=== PATIENT | female | born 1980 | race African-American/Black ===

== ENCOUNTER 2018-08-22 14:06 | Outpatient (CLI) | payer BC | END 2018-08-22 14:07 | disposition home or self-care (01) | LOC: DTY/OP 14:06 | PROVIDERS: ATTEND Surgery | DX: E66.01 Morbid (severe) obesity due to excess calories (principal) | CPT/HCPCS: 97802 ==

== ENCOUNTER 2018-09-18 10:15 | Inpatient (IN) | payer BC ==
[2018-09-18 11:06] VITALS: BMI 40.5
[2018-10-01] MEDS ORDERED: Heparin 5,000 UNITS/ML VIAL ONE (07:39)
[2018-10-01] MEDS ORDERED: Bupivacaine/Epinephrine 0.25% 30 ML VIAL ONE (07:40)
[2018-10-01] MEDS ORDERED: Fentanyl 100 MCG/2 ML VIAL ONE ×3 (07:42→09:37)
[2018-10-01] MEDS ORDERED: Midazolam HCl 2 mg/2 ml Vial ONE (07:42)
[2018-10-01] MEDS ORDERED: Famotidine/PF 20 mg/2ml Vial ONE (07:42)
[2018-10-01] MEDS ORDERED: Promethazine HCl 25 MG/ML VIAL SLOW IVP PRN (08:49)
[2018-10-01] MEDS ORDERED: Meperidine HCl/PF 25 MG/ML VIAL SLOW IVP PRN (08:49)
[2018-10-01] MEDS ORDERED: Promethazine HCl 25 MG/ML VIAL IM PRN ×2 (08:49→09:01)
[2018-10-01] MEDS ORDERED: Ondansetron HCl/PF 4 MG/2 ML Vial IVP PRN (08:49)
[2018-10-01] MEDS ORDERED: Hydrocodone-Acetamin 15 ML UDCUP PO PRN (09:01)
[2018-10-01] MEDS ORDERED: diphenhydrAMINE 50 MG/ML VIAL IVP PRN (09:01)
[2018-10-01] MEDS ORDERED: Ondansetron PF 4 MG/2 ML Vial IVP PRN (09:01)
[2018-10-01] MEDS ORDERED: Dextrose 50% Abboject 50 ML SYRINGE SLOW IVP PRN (09:01)
[2018-10-01] MEDS ORDERED: Dextrose 5% in Water 1,000 ML IV PRN (09:01)
[2018-10-01] MEDS ORDERED: fentaNYL Citrate/PF 2,000 MCG in Sodium Chloride 0.9% 60 ML IV PRN (11:33)
[2018-10-01] MEDS: D5 1/2 NS w/20 mEq KCL 1,000 ML IV SCH ×3 (11:35→20:11)
[2018-10-01] MEDS ORDERED: Fentanyl 100 MCG/2 ML VIAL SLOW IVP SCH (11:45)
--- NOTE | 2018-10-01 12:03 | OP ---
DATE OF PROCEDURE: 10/01/2018 PREOPERATIVE DIAGNOSIS: Morbid obesity. PROCEDURE PERFORMED: Laparoscopic sleeve gastrectomy with esophagogastroscopy. INDICATIONS: A 37-year-old female, morbidly obese, who has attempted multiple weight loss programs without success. FINDINGS: A 38-[place] bougie used. DESCRIPTION OF PROCEDURE: After informed consent was obtained, the patient was taken to the operating room and given general endotracheal anesthesia, placed in supine position. Abdomen was prepped and draped in usual fashion. Local anesthesia was infiltrated subcutaneously and deep. A 12-mm incision was performed approximately 8 inches below the xiphoid slightly to the left. Veress needle was inserted. Drop test was performed. Pneumoperitoneum was created to a volume of 2 L of carbon dioxide. Utilizing a bladeless 12 mm trocar and 0-degree laparoscope, direct visual entry into abdominal cavity was performed. Pneumoperitoneum was created to a pressure of 15 mmHg, and the patient was placed in steep reverse Trendelenburg position. Yany liver retractor was inserted. Left lobe of the liver retracted superiorly. Pylorus was identified. A 12-mm port was placed on the right beneath it and two 12s placed in left subcostal. The omentum was taken off the greater curvature 5 cm from the pylorus utilizing the LigaSure. Short gastrics divided with the LigaSure. Left crura defined with the LigaSure. A 38-[place] bougie was inserted directed into the antrum. The linear 60 mm green load stapler was used to divide the antrum to the bougie, gold load along the bougie, and a series of blues through the angle of His. Intraoperative endoscopy was performed. The video endoscope was inserted under direct vision and advanced into the sleeve. Staple line inspected. There was no bleeding. Staple line was then tested by inflating the new stomach with pressurized air and water. There was no air leak. Stomach decompressed. Scope was removed. The remnant stomach was removed from the abdomen through the left lateral port site. The fascia was closed with 0 Vicryl suture and the GraNee needle. Trocars and retractors were removed. The skin was closed with interrupted 4-0 Rapide. Dermabond was applied. The patient tolerated the procedure well, transferred to Recovery in good condition. Sponge and needle count verified correct x2. Job ID: [id number]
[2018-10-01] MEDS: CEFAZOLIN 2 GM in Premix Bag 1 BAG IVPB SCH ×2 (14:28→20:11)
[2018-10-01] MEDS: hydrALAZINE 20 MG/ML VIAL SLOW IVP PRN (15:35)
[2018-10-02 05:23] LABS: #Lymphocytes 1.2 thou/uL (1.20-3.40); #Monocytes 0.9 thou/uL (0.11-0.59); #Neutrophils 10.6 thou/uL (1.40-6.50); %Basophils 0.1 % (0.0-1.0); %Eosinophils 0.1 % (0.0-10.0); %Lymphocytes 9.1 % (21.0-51.0); %Monocytes 6.8 % (0.0-10.0); %Neutrophils 83.9 % (42.0-75.0); Hemoglobin 13.5 g/dL (12.0-16.0); Mean Corpuscular HGB CONC 34.5 g/dL (32.0-36.0); Mean Corpuscular Hemoglobin 29.3 pg (27.0-31.0); Mean Corpuscular Volume 84.8 fL (78.0-98.0); Mean Platelet Volume 9.1 fL (7.4-10.4); Platelet Count 219 thou/uL (130-400); RBC Distribution Width 11.4 % (11.5-14.5); White Blood Cell (WBC) Count 12.7 thou/uL (4.8-10.8)
[2018-10-02 05:44] LABS: Anion Gap 15 mmol/L (10-20); BUN (Urea Nitrogen) 9 mg/dL (7.0-18.7); Calc. Creatinine Clearance 189 mL/min (70-130); Calcium 9.3 mg/dL (7.8-10.44); Carbon Dioxide 22 mmol/L (22-29); Chloride 102 mmol/L (98-107); Estimated GFR-MDRD Greater than 90; Glucose 113 mg/dL (70-105); Potassium 4.1 mmol/L (3.5-5.1); Sodium 135 mmol/L (136-145)
[2018-10-02 08:39] VITALS: TEMP 98.3
[2018-10-02] MEDS: D5 1/2 NS w/20 mEq KCL 1,000 ML IV SCH (08:40)
[2018-10-02] MEDS: hydrALAZINE 20 MG/ML VIAL SLOW IVP PRN ×2 (08:40→13:13)
[2018-10-02] MEDS ORDERED: Enoxaparin Sodium 40 MG/0.4 ML SYRINGE SC SCH (09:00)
[2018-10-02] MEDS ORDERED: Pantoprazole 40 MG VIAL IVP SCH (09:00)
--- NOTE | 2018-10-02 09:20 | RAD ---
Upper GI series. HISTORY: Patient with recent gastric sleeve. 30 mL of Gastrografin was given orally. Spot images obtained. Radiation dosimetry: 1.1 minutes of fluoroscopy and AK of 278 mGr The esophagus unremarkable. Postsurgical changes seen along the greater curvature of the stomach. Numerous surgical clips seen. No evidence of extravasation of contrast seen out of the gastric lumen. The contrast passes into the gastric antrum and into the duodenum without evidence of abnormalities. IMPRESSION: Normal Gastrografin upper GI series after gastric sleeve.
[2018-10-02] MEDS ORDERED: Hydrocodone-Acetamin 15 ML UDCUP PO PRN (10:50)
[2018-10-02 12:04] VITALS: BP 154/100
--- NOTE | 2018-10-03 09:29 | DIS ---
DATE OF ADMISSION: 10/01/2018 DATE OF DISCHARGE: 10/02/2018 DISCHARGE DIAGNOSIS: Morbid obesity. PROCEDURES DURING ADMISSION: Laparoscopic sleeve gastrectomy, intraoperative esophagogastroscopy, and postoperative Gastrografin swallow. HOSPITAL COURSE: The patient was admitted. She was taken to the operating room, where she underwent a sleeve gastrectomy. Postoperatively, she has done well. She had a postoperative x-ray that was fine. She is started on liquids. She is tolerating them well. She is discharged home on hydrocodone and Zofran. She will follow up with me in 2 weeks. Job ID: [id number]
== END 2018-10-02 15:05 | disposition home or self-care (01) | DRG 621 ==
LOC: SURG A 10-01 07:21
PROVIDERS: ADMIT Surgery; ATTEND Surgery
PROC: 0DB64Z3 Excision of Stomach, Percutaneous Endoscopic Approach, Vertical (ICD-10-PCS; principal; 2018-10-01)
PROC: 0DJ08ZZ Inspection of Upper Intestinal Tract, Via Natural or Artificial Opening Endoscopic (ICD-10-PCS; 2018-10-01)
DX: E66.01 Morbid (severe) obesity due to excess calories (principal); I10 Essential (primary) hypertension; I25.10 Atherosclerotic heart disease of native coronary artery without angina pectoris; E11.9 Type 2 diabetes mellitus without complications; Z98.890 Other specified postprocedural states; Z86.73 Personal history of transient ischemic attack (TIA), and cerebral infarction without residual deficits; Z68.41 Body mass index [BMI] 40.0-44.9, adult
CPT/HCPCS: 36415; 74241; 80048; 85025; 88307; 88312; C9113; J0131; J0360; J0690; J1644; J1650; J2250; J3010; J3490; S0028

== ENCOUNTER 2018-09-18 11:30 | Outpatient (CLI) | payer BC ==
[2018-09-18 12:04] LABS: #Basophils 0.1 thou/uL (0.0-0.2); #Eosinphils 0.1 thou/uL (0.0-0.7); #Lymphocytes 2.6 thou/uL (1.20-3.40); #Monocytes 0.5 thou/uL (0.11-0.59); #Neutrophils 3.6 thou/uL (1.40-6.50); %Basophils 0.9 % (0.0-1.0); %Eosinophils 1.3 % (0.0-10.0); %Lymphocytes 38.3 % (21.0-51.0); %Monocytes 6.8 % (0.0-10.0); %Neutrophils 52.7 % (42.0-75.0); Hemoglobin 13.4 g/dL (12.0-16.0); Mean Corpuscular HGB CONC 34.2 g/dL (32.0-36.0); Mean Corpuscular Hemoglobin 29.3 pg (27.0-31.0); Mean Corpuscular Volume 85.6 fL (78.0-98.0); Mean Platelet Volume 9.1 fL (7.4-10.4); Platelet Count 203 thou/uL (130-400); RBC Distribution Width 11.4 % (11.5-14.5); Red Blood Cell (RBC) Count 4.58 mill/uL (4.20-5.40); White Blood Cell (WBC) Count 6.7 thou/uL (4.8-10.8)
--- NOTE | 2018-09-18 12:06 | RAD ---
PA AND LATERAL VIEWS CHEST: HISTORY: Preop evaluation. FINDINGS: The cardiomediastinum is normal. The lungs are expanded and clear. The bony thorax is normal. IMPRESSION: Normal exam. POS: [facility]
[2018-09-18 12:17] LABS: Hemoglobin A1c 5.9 % (4.0-6.0)
[2018-09-18 12:20] LABS: BHCG - Serum Negative (NEGATIVE); Pregs Control Background? CLEAR/WHITE (CLR/WHITE); Pregs Control Bar Appear? YES (CONTROL BAR)
[2018-09-18 12:27] LABS: ALT (SGPT) 16 U/L (8-55); AST (SGOT) 13 U/L (5-34); Albumin 4.5 g/dL (3.5-5.0); Alkaline Phosphatase 62 U/L (40-150); Anion Gap 15 mmol/L (10-20); BUN (Urea Nitrogen) 17 mg/dL (7.0-18.7); Bilirubin, Direct 0.1 mg/dL (0.1-0.3); Bilirubin, Total 0.3 mg/dL (0.2-1.2); Calc. Creatinine Clearance 0 mL/min (70-130); Calcium 10.2 mg/dL (7.8-10.44); Carbon Dioxide 23 mmol/L (22-29); Chloride 104 mmol/L (98-107); Estimated GFR-MDRD Greater than 90; Globulin 2.5 g/dL (2.4-3.5); Glucose 93 mg/dL (70-105); Potassium 4.5 mmol/L (3.5-5.1); Sodium 137 mmol/L (136-145)
--- NOTE | 2018-09-20 13:46 | EKG ---
Test Reason : Blood Pressure : / mmHG Vent. Rate : 081 BPM Atrial Rate : 081 BPM P-R Int : 164 ms QRS Dur : 078 ms QT Int : 324 ms P-R-T Axes : 082 063 039 degrees QTc Int : 376 ms Normal sinus rhythm Normal ECG No previous ECGs available Confirmed by DR. Martha MACDONALD ([id number]) on 09/20/2018 1:46:27 PM Referred By: TOMI Confirmed By:DR. Martha MACDONALD
== END 2018-09-18 11:31 | disposition home or self-care (01) ==
LOC: LABBT 11:30
PROVIDERS: ATTEND Surgery
DX: Z01.818 Encounter for other preprocedural examination (principal); E66.01 Morbid (severe) obesity due to excess calories
CPT/HCPCS: 71046; 80053; 80076; 83036; 84703; 85025; 93005; 93010

== ENCOUNTER 2024-04-20 15:38 | Outpatient (CLI) | payer BC | END 2024-04-20 15:39 | disposition home or self-care (01) | LOC: BICULT 15:38 | PROVIDERS: ATTEND Student in an Organized Health Care Education/Training Program | DX: N92.0 Excessive and frequent menstruation with regular cycle (principal); D25.9 Leiomyoma of uterus, unspecified | CPT/HCPCS: 76856; 93976 ==